=== PATIENT | female | born 1975 | race Hispanic/Latino ===

== ENCOUNTER 2016-12-23 19:18 | Emergency (ER) | payer OTHER ==
[2016-12-23 19:53] VITALS: BP 110/69
[2016-12-23] MEDS ORDERED: TYLENOL ONE (19:53)
[2016-12-23] MEDS ORDERED: TYLENOL PO ONE (19:54)
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
[2016-12-23] MEDS ORDERED: FLEXERIL PO ONE (23:23)
[2016-12-23] MEDS ORDERED: NORCO 5/325 PO ONE (23:23)
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
== END 2016-12-23 23:46 | disposition home or self-care (01) ==
LOC: ED 19:18
DX: M54.5 Low back pain (principal); Z88.0 Allergy status to penicillin; Z88.8 Allergy status to other drugs, medicaments and biological substances; V89.2XXA Person injured in unspecified motor-vehicle accident, traffic, initial encounter; Y93.89 Activity, other specified; Y99.8 Other external cause status; Y92.89 Other specified places as the place of occurrence of the external cause
CPT/HCPCS: 72100; 99283